=== PATIENT | female | born 1975 | race Hispanic/Latino ===

== ENCOUNTER 2019-03-24 21:56 | Emergency (ER) | payer MEDICAID ==
[2019-03-24] MEDS ORDERED: TETANUS/DIPHTHERIA TOXOID [ADULT] 0.5 ML VIAL IM ONE (23:19)
[2019-03-24] MEDS ORDERED: DEXAMETHASONE SOD PHOSPHATE 10MG/ML 1ML VIAL ONE (23:19)
[2019-03-24] MEDS ORDERED: DiphenhydrAMINE HCL 50 MG/ML VIAL ONE (23:19)
[2019-03-24] MEDS ORDERED: CEFTRIAXONE SODIUM 1 GM ONE (23:54)
[2019-03-24] MEDS ORDERED: LIDOCAINE HCL-MPF 1% 2ML VIAL ONE (23:54)
== END 2019-03-25 00:23 | disposition home or self-care (01) ==
LOC: EDH 21:56
DX: S50.861A Insect bite (nonvenomous) of right forearm, initial encounter (principal); L03.113 Cellulitis of right upper limb; W57.XXXA Bitten or stung by nonvenomous insect and other nonvenomous arthropods, initial encounter; Y93.89 Activity, other specified; Y92.89 Other specified places as the place of occurrence of the external cause; Y99.8 Other external cause status; Z88.6 Allergy status to analgesic agent
CPT/HCPCS: 81025; 90471; 90714; 96372 ×3; 99284; J0696; J1100; J1200; J3490